=== PATIENT | female | born 1995 | race African-American/Black ===

== ENCOUNTER 2017-01-12 06:24 | Emergency (ER) | payer MEDICAID, OTHER ==
[~2017-01-12] VITALS: Ht 172.7 cm; Wt 92.0 kg
[~2017-01-12 06:24] MED LIST: CEPH500C3 PO
[2017-01-12 06:27] VITALS: BP 176/100; PULSE 86; RESP 16; TEMP 97.6; O2SAT 99
[2017-01-12 06:40] VITALS: BP 127/87; PULSE 75; RESP 18
[2017-01-12] MEDS ORDERED: CIPR0.3S RIGHT EAR (07:18)
--- NOTE | 2017-01-12 07:18 | PD ---
HPI Chief Complaint: ENT Complaint Time Seen by Provider: 07:07 Travel History International Travel<30 days: No Contact w/Intl Traveler<30days: No Traveled to known affect area: No History of Present Illness HPI 21-year-old female states she's been having right sided ear pain and nasal congestion over the past couple of days. She tried [id number] eardrops to help get water out but that only bales. She denies any other concurrent complaints including fever or other concerns. Quality pain is burning. Severity is severe per patient. She denies any sick contacts. She states her last menstrual cycle was at the beginning of last month and she is not for sure if she is or not. She denies any associated abdominal pain or bleeding. [facility] Past Medical History Hypertension: Yes ?: Unknown LMP: beginning of December : 1 Para: 0 Past Surgical History Surgical History: No Previous Surgery Social History Alcohol Use: No Tobacco Use: No Substance Use: No Allergies-Medications (Allergen,Severity, Reaction): Coded Allergies: No Known Allergies (Unverified , 01/12/17) Reported Meds & Prescriptions Reported Meds & Active Scripts Active Ciprodex Otic Drops (Ciprofloxacin-Dexamethasone Otic Drops) 0.3-0.1% Susp 4 Drop RIGHT EAR BID 7 Days Review of Systems Except as stated in HPI: all other systems reviewed are Neg Physical Exam Narrative GENERAL: Well-nourished, well-developed patient. Well-appearing SKIN: Warm and dry. HEAD: Normocephalic and atraumatic. EYES: No injection or drainage. ENT: No nasal drainage noted. Right mastoid nontender, pain with movement of pinna, right external auditory canal with erythema noted without drainage, bilateral TMs clear, left external auditory canal normal NECK: Supple, trachea midline. No meningeal signs CARDIOVASCULAR: Regular rate and rhythm RESPIRATORY: Breath sounds equal bilaterally at apices. No accessory muscle use. NEUROLOGICAL: Awake and alert. Motor and sensory grossly within normal limits. Normal speech. Data Data Last Documented VS Vital Signs Date Time Temp Pulse Resp B/P Pulse Ox O2 Delivery O2 Flow Rate FiO2 01/12/17 06:40 75 18 127/87 01/12/17 06:27 97.6 99 Room Air Orders Ed Urine Pregnancytest Poc (01/12/17 07:10) [facility] Medical Decision Making Medical Screen Exam Complete: Yes Emergency Medical Condition: Yes Medical Record Reviewed: Yes (pmh confirmed) Differential Diagnosis Otitis externa, allergies, URI Narrative Course Will check point of care beta to make sure which medications I can use to treat her Beta is negative, all questions answered. Patient knows that follow up is incumbent on them and to return to the emergency room immediately if new or worsening symptoms develop. Patient given strict return precautions, vitals reviewed and are normal, agrees to further workup as an outpatient. Diagnosis Primary Impression: Otitis externa Qualified Code: H60.501 - Acute otitis externa of right ear, unspecified type Patient Instructions: General Instructions Additional Instructions: return as needed, tylenol as needed, follow with primary this week for recheck Med/Other Pt SpecificInfo: Prescription(s) given Scripts Ciprofloxacin-Dexamethasone Otic Drops (Ciprodex Otic Drops)0.3-0.1% Susp4 Drop RIGHT EAR BID 7 Days Ref 0 Prov:Dejah Johnson MD 01/12/17 Disposition: 01 DISCHARGE HOME Condition: Stable Dejah Johnson MD Jan 12, 2017 07:18
== END 2017-01-12 07:34 | disposition home or self-care (01) ==
LOC: NEPE 06:24
DX: H60.501 Unspecified acute noninfective otitis externa, right ear (principal); I10 Essential (primary) hypertension
CPT/HCPCS: 84703; 99283

== ENCOUNTER 2017-03-20 21:54 | Emergency (ER) | payer MEDICAID ==
[~2017-03-20] VITALS: Ht 175.3 cm; Wt 95.5 kg
[~2017-03-20 21:54] MED LIST changes: -CEPH500C3 PO; +CIPR0.3S RIGHT EAR
[2017-03-20 21:57] VITALS: BP 154/58; PULSE 113; RESP 16; TEMP 103; O2SAT 98
[2017-03-20] MEDS ORDERED: PENI500T PO (22:22)
[2017-03-20] MEDS ORDERED: KETOROLAC TROMETHAMINE 30 MG/ML (IVP) VIAL IV PUSH ONE (22:30)
[2017-03-20] MEDS ORDERED: SODIUM CHLOR 0.9% 1000 ML INJ 1,000 ML IV ONE (22:30)
[2017-03-20] MEDS ORDERED: DEXAMETHASONE SOD PHOS 20 MG/5 ML VIAL IV PUSH ONE (22:30)
[2017-03-20 22:47] LABS: BASOPHIL # 0.1 TH/MM3 (0-0.2); BASOPHIL % 0.4 % (0.0-2.0); EOSINOPHIL # 0.1 TH/MM3 (0-0.4); EOSINOPHIL % 0.9 % (0.0-4.0); LYMPHOCYTE # 2.7 TH/MM3 (1.0-4.8); MEAN CELL VOLUME 85.5 FL (80.0-100.0); MEAN CORPUSCULAR HEMOGLOBIN 28.9 PG (27.0-34.0); MEAN CORPUSCULAR HGB CONC 33.8 % (32.0-36.0); MONO % 18.9 % (0.0-8.0); NEUT % 59.8 % (16.0-70.0); PLATELET COUNT 335 TH/MM3 (150-450); RED BLOOD COUNT 4.22 MIL/MM3 (4.00-5.30); RED CELL DISTRIBUTION WIDTH 14.2 % (11.6-17.2); WHITE BLOOD COUNT 13.5 TH/MM3 (4.0-11.0)
[2017-03-20 22:51] LABS: HEMO FLAGS AUTO DIFF
[2017-03-20 22:57] LABS: ALT (GPT) 42 U/L (10-53); ANION GAP 8 MEQ/L (5-15); AST (GOT) 31 U/L (15-37); BICARBONATE 27.2 MEQ/L (21.0-32.0); BLOOD UREA NITROGEN 5 MG/DL (7-18); CHLORIDE 105 MEQ/L (98-107); GLOMERULAR FILTRATION RATE 102 ML/MIN (>89); POTASSIUM 3.2 MEQ/L (3.5-5.1); SODIUM (NA) 140 MEQ/L (136-145)
[2017-03-20 23:00] LABS: ALKALINE PHOSPHATASE 113 U/L (45-117); TOTAL BILIRUBIN ADULT 0.3 MG/DL (0.2-1.0)
[2017-03-20 23:03] VITALS: PULSE 97; RESP 18; O2SAT 97
[2017-03-20] MEDS ORDERED: IOHEXOL 350 MG/ML 10 ML VIAL (for RAD DIAG) IVCONTRAST ONE (23:32)
[2017-03-20 23:44] LABS: PLATELET ESTIMATE SMEAR NORMAL (NORMAL); PLATELET MORPHOLOGY NORMAL (NORMAL); SCAN/DIFF AUTO DIFF CONFIRMED
[2017-03-21] VITALS: TEMP 100.3
--- NOTE | 2017-03-21 | RADRPT ---
EXAM DATE/TIME: 03/20/2017 23:15 [facility] COMPARISON: No previous studies available for comparison. INDICATIONS : Neck and facial swelling with dyspnea and hemoptysis. IV CONTRAST: 95 cc Omnipaque 350 (iohexol) IV RADIATION DOSE: 16.2 CTDIvol (mGy) MEDICAL HISTORY : None SURGICAL HISTORY : None. ENCOUNTER: Initial ACUITY: 3 days PAIN SCALE: 10/10 LOCATION: facial TECHNIQUE: Volumetric scanning of the neck was performed. Using automated exposure control and adjustment of th e mA and/or kV according to patient size, radiation dose was kept as low as reasonably achievable to obtain optimal diagnostic quality images. DICOM format image data is available electronically for r eview and comparison. FINDINGS: NASOPHARYNX: Prominent adenoidal tissue. Nasopharynx is otherwise patent. OROPHARYNX: The intrinsic muscles of the tongue are symmetric. The tonsillar pillars are intact. The prevertebr al soft tissues are not thickened. Very prominent lingual tonsils. LARYNX: The supraglottic, glottic, and infraglottic structures are intact. PARAPHARYNGEAL: The parapharyngeal space is intact. SALIVARY GLANDS: The parotid and submandibular glands are intact. LYMPH NODES: Symmetrically prominent lymph nodes in both anterior cervical chains. Nodes measure upwards of 2.1 cm in diameter. THYROID: Homogeneous enhancement without evidence of nodule. BONES: Unremarkable. CONCLUSION: 1. Symmetrically prominent lingual tonsils and adenoidal tissue. Findings are suggestive of a nonspec ific pharyngitis. 2. Symmetrically prominent lymph nodes in the anterior cervical chains. Again, this may represent a n onspecific inflammatory/infectious process. 3. No abscess formation. No suspicious mass lesion. Doroteo Finn MD on March 20, 2017 at 23:54 Board Certified Radiologist. This report was verified electronically.
[2017-03-21] MEDS ORDERED: CLIN1CAP6 PO (00:43)
--- NOTE | 2017-03-21 00:43 | PD ---
HPI Chief Complaint: ENT Complaint Time Seen by Provider: 22:16 Travel History International Travel<30 days: No Contact w/Intl Traveler<30days: No Traveled to known affect area: No History of Present Illness HPI Patient is a 21 year old female who comes in complaining of sore throat and fever. She says she was seen at a hospital in [place] yesterday and was told she needed to stay, however, she said she needed to come home to [facility]. She says that she has been taking Penicillin since yesterday, but says she is feeling worse. She says today she vomited with some blood in it. She has a lot of pain with swallowing, but she is able to swallow. She denies difficulty breathing. She did not take any fever reducers or pain medicine at home. [facility] Past Medical History Medical History: Denies Significant Hx Hypertension: Yes Tetanus Vaccination: > 5 Years Influenza Vaccination: No ?: Not LMP: 03/18/17 : 1 Para: 0 Past Surgical History Surgical History: No Previous Surgery Social History Alcohol Use: No Tobacco Use: No Substance Use: No Allergies-Medications (Allergen,Severity, Reaction): Coded Allergies: No Known Allergies (Unverified , 01/12/17) Reported Meds & Prescriptions Reported Meds & Active Scripts Active Clindamycin (Clindamycin HCl) 300 Mg Cap 600 Mg PO Q8H 7 Days Reported Penicillin V Potassium 500 Mg Tab 500 Mg PO BID Review of Systems Except as stated in HPI: all other systems reviewed are Neg General / Constitutional: Positive: Fever HENT: Positive: Sore Throat Cardiovascular: No: Chest Pain or Discomfort Respiratory: No: Shortness of Breath Gastrointestinal: Positive: Nausea, Vomiting, No: Abdominal Pain Skin: No Rash, No Change in Pigmentation Neurologic: No: Weakness, Dizziness Physical Exam Narrative GENERAL: Awake and alert, in no acute distress. SKIN: Focused skin assessment warm/dry. HEAD: Atraumatic. Normocephalic. EYES: Pupils equal and round. No scleral icterus. ENT: Swollen tonsils, no obvious exudates. Uvula is midline. No peritonsillar abscess. Mucous membranes pink and moist. NECK: Trachea midline. No JVD. CARDIOVASCULAR: Regular rate and rhythm. No murmur appreciated. RESPIRATORY: No accessory muscle use. Clear to auscultation. Breath sounds equal bilaterally. MUSCULOSKELETAL: No obvious deformities. No clubbing. No cyanosis. No edema. NEUROLOGICAL: Awake and alert. No obvious cranial nerve deficits. Motor grossly within normal limits. Normal speech. PSYCHIATRIC: Appropriate mood and affect; insight and judgment normal. Data Data Last Documented VS Vital Signs Date Time Temp Pulse Resp B/P (MAP) Pulse Ox O2 Delivery O2 Flow Rate FiO2 03/21/17 00:46 85 18 94/69 (77) 97 Room Air 03/21/17 00:00 100.3 Orders Orders Iv Access Insert/Monitor (03/20/17 22:24) Complete Blood Count With Diff (03/20/17 22:24) Comprehensive Metabolic Panel (03/20/17 22:24) Ct Soft Tiss Neck W Iv Cont (03/20/17 ) Ed Urine Pregnancytest Poc (03/20/17 22:24) Sodium Chlor 0.9% 1000 Ml Inj (Ns 1000 M (03/20/17 22:30) Dexamethasone Inj (Decadron Inj) (03/20/17 22:30) Ketorolac Inj (Toradol Inj) (03/20/17 22:30) Iohexol 350 Inj (Omnipaque 350 Inj) (03/20/17 23:32) Labs Laboratory Tests Test 03/20/17 22:29 White Blood Count 13.5 TH/MM3 Red Blood Count 4.22 MIL/MM3 Hemoglobin 12.2 GM/DL Hematocrit 36.0 % Mean Corpuscular Volume 85.5 FL Mean Corpuscular Hemoglobin 28.9 PG Mean Corpuscular Hemoglobin Concent 33.8 % Red Cell Distribution Width 14.2 % Platelet Count 335 TH/MM3 Mean Platelet Volume 9.5 FL Neutrophils (%) (Auto) 59.8 % Lymphocytes (%) (Auto) 20.0 % Monocytes (%) (Auto) 18.9 % Eosinophils (%) (Auto) 0.9 % Basophils (%) (Auto) 0.4 % Neutrophils # (Auto) 8.0 TH/MM3 Lymphocytes # (Auto) 2.7 TH/MM3 Monocytes # (Auto) 2.5 TH/MM3 Eosinophils # (Auto) 0.1 TH/MM3 Basophils # (Auto) 0.1 TH/MM3 CBC Comment AUTO DIFF Differential Comment AUTO DIFF CONFIRMED Platelet Estimate NORMAL Platelet Morphology Comment NORMAL Blood Urea Nitrogen 5 MG/DL Creatinine 0.85 MG/DL Random Glucose 65 MG/DL Total Protein 8.8 GM/DL Albumin 3.5 GM/DL Calcium Level 8.6 MG/DL Alkaline Phosphatase 113 U/L Aspartate Amino Transf (AST/SGOT) 31 U/L Alanine Aminotransferase (ALT/SGPT) 42 U/L Total Bilirubin 0.3 MG/DL Sodium Level 140 MEQ/L Potassium Level 3.2 MEQ/L Chloride Level 105 MEQ/L Carbon Dioxide Level 27.2 MEQ/L Anion Gap 8 MEQ/L Estimat Glomerular Filtration Rate 102 ML/MIN [facility] Medical Decision Making Medical Screen Exam Complete: Yes Emergency Medical Condition: Yes Medical Record Reviewed: Yes Differential Diagnosis Pharyngitis versus strep throat versus abscess Narrative Course Patient is a 21-year-old female comes in complaining of fever and sore throat. Patient is febrile to 103. Exam shows enlarged tonsils, no airway compromise. IV established, labs sent. Labs show a white blood cell count of 13.5. CT of the neck performed shows no evidence of abscess or airway compromise. Given Decadron, Toradol, IV fluids. She reports feeling better. We'll change her antibiotic to clindamycin. She is advised to take Tylenol or IV or been as needed for fever and pain. Advised follow-up with a primary care doctor. Advised to return to the ED as needed for any worsening symptoms. Diagnosis Primary Impression: Pharyngitis Qualified Codes: J02.9 - Acute pharyngitis, unspecified Patient Instructions: General Instructions, Pharyngitis (ED) Additional Instructions: Take all of your antibiotic. Drink plenty of fluids. Take Tylenol or ibuprofen as needed for fever or pain. Follow-up with a primary care doctor. Return to the ED as needed for any worsening symptoms. Scripts Ondansetron Odt (Zofran Odt) 4 Mg Tab 4 MG SL Q6HR Y for Nausea/Vomiting, #10 TAB 0 Refills Prov: Shyla Aguilar MD 03/21/17 Clindamycin (Clindamycin) 300 Mg Cap 600 MG PO Q8H for Infection for 7 Days, #42 CAP 0 Refills Prov: Shyla Aguilar MD 03/21/17 Disposition: 01 DISCHARGE HOME Condition: Stable Shyla Aguilar MD Mar 21, 2017 00:43
[2017-03-21 00:46] VITALS: BP 94/69; PULSE 85; RESP 18; O2SAT 97
[2017-03-21] MEDS ORDERED: ZOFR4TAB3 SL (01:12)
[2017-03-21] MEDS ORDERED: ONDANSETRON HCL 4 MG/2 ML VIAL ONE (01:22)
== END 2017-03-21 02:03 | disposition home or self-care (01) ==
LOC: NEPC 21:54
DX: J02.9 Acute pharyngitis, unspecified (principal)
CPT/HCPCS: 70491; 80053; 84703; 85025; 96361; 96374; 96375; 99285; J1100; J1885; J2405; J7030; Q9967